=== PATIENT | female | born 1960 | race African-American/Black ===

== ENCOUNTER 2019-06-20 23:28 | Inpatient (IN) | payer OTHER ==
[2019-06-21] MEDS: SODIUM CHLORIDE 0.9% 1L BAG IV* (00:14)
[2019-06-21] MEDS: CEFEPIME 2GM/50 ML (PMX) 50 ML IVPB (00:14)
[2019-06-21] MEDS: VANCOMYCIN 1 GM (PMX) 250 ML IVPB (01:24)
[2019-06-21] MEDS: NORepinephrine 8MG/250 ML (PMX 250 ML IV (01:33)
[2019-06-21] MEDS: SOD CHLORIDE 0.9% 1,000 ML IV ×3 (02:01→22:10)
[2019-06-21] MEDS ORDERED: ALBUTEROL HFA 8 GM INHALER INH (02:30)
[2019-06-21] MEDS ORDERED: ACETAMINOPHEN 650MG/20.3ML CUP GTB (02:30)
[2019-06-21] MEDS ORDERED: VANCOMYCIN IV PER PHARMACY XX (02:30)
[2019-06-21] MEDS ORDERED: IPRATROPIUM (HFA) 12.9 GM INHALER INH (02:30)
[2019-06-21] MEDS: ALBUMIN HUMAN 25% 100 ML IV ×4 (02:38→09:05)
[2019-06-21] MEDS: FAMOTIDINE 20 MG TAB GTB ×3 (06:02→20:32)
[2019-06-21] MEDS: PIPER-TAZO 3.375 GM IV (PMX) 100 ML IVPB ×3 (06:02→18:09)
[2019-06-21] MEDS: HEPARIN 5,000 UNIT/1 ML VIAL SC ×3 (06:05→22:09)
[2019-06-21] MEDS: LACTULOSE 30ML CUP GTB (09:56)
[2019-06-21] MEDS: POTASSIUM CHLORIDE (SR) 10 MEQ TAB GTB (09:56)
[2019-06-21] MEDS: ASCORBIC ACID 500 MG TAB GTB ×2 (09:57→20:32)
[2019-06-21] MEDS: MULTIVITAMINS/MINERALS TAB GTB (11:49)
[2019-06-21] MEDS: ARTIFICIAL TEARS 15 ML OPH BOTH EYES ×2 (12:55→18:09)
[2019-06-21] MEDS ORDERED: VANCOMYCIN 1 GM 250 ML IVPB (14:00)
[2019-06-22] MEDS: ARTIFICIAL TEARS 15 ML OPH BOTH EYES ×4 (00:16→18:09)
[2019-06-22] MEDS: PIPER-TAZO 3.375 GM IV (PMX) 100 ML IVPB ×2 (00:16→05:31)
[2019-06-22] MEDS: HEPARIN 5,000 UNIT/1 ML VIAL SC ×3 (06:01→21:39)
[2019-06-22] MEDS: ASCORBIC ACID 500 MG TAB GTB ×2 (10:51→21:26)
[2019-06-22] MEDS: LACTULOSE 30ML CUP GTB (10:51)
[2019-06-22] MEDS: FAMOTIDINE 20 MG TAB GTB ×2 (10:51→21:26)
[2019-06-22] MEDS: MULTIVITAMINS/MINERALS TAB GTB (10:52)
[2019-06-22] MEDS: SOD CHLORIDE 0.9% 1,000 ML IV (11:19)
[2019-06-22] MEDS: POTASSIUM CHLORIDE (SR) 10 MEQ TAB GTB (15:46)
[2019-06-23] MEDS: ARTIFICIAL TEARS 15 ML OPH BOTH EYES ×3 (01:27→11:35)
[2019-06-23] MEDS: SOD CHLORIDE 0.9% 1,000 ML IV (01:39)
[2019-06-23] MEDS: HEPARIN 5,000 UNIT/1 ML VIAL SC ×2 (06:06→13:41)
[2019-06-23] MEDS: MULTIVITAMINS/MINERALS TAB GTB (08:41)
[2019-06-23] MEDS: FAMOTIDINE 20 MG TAB GTB (08:41)
[2019-06-23] MEDS: LACTULOSE 30ML CUP GTB (08:41)
[2019-06-23] MEDS: ASCORBIC ACID 500 MG TAB GTB (08:41)
[2019-06-23] MEDS: POTASSIUM CHLORIDE (SR) 10 MEQ TAB GTB (08:41)
== END 2019-06-23 16:38 | DRG 315 ==
LOC: TEL 06-22 08:59 → E/R 23:28 → ICU 06-21 01:49
PROC: 5A1945Z Respiratory Ventilation, 24-96 Consecutive Hours (ICD-10-PCS; principal; 2019-06-20)
PROC: 4A033R1 Measurement of Arterial Saturation, Peripheral, Percutaneous Approach (ICD-10-PCS; 2019-06-20)
PROC: 06HM33Z Insertion of Infusion Device into Right Femoral Vein, Percutaneous Approach (ICD-10-PCS; 2019-06-20)
PROC: B54BZZA Ultrasonography of Right Lower Extremity Veins, Guidance (ICD-10-PCS; 2019-06-20)
DX: I95.9 Hypotension, unspecified (principal); G93.1 Anoxic brain damage, not elsewhere classified; J96.10 Chronic respiratory failure, unspecified whether with hypoxia or hypercapnia; Z99.11 Dependence on respirator [ventilator] status; E86.0 Dehydration; R13.10 Dysphagia, unspecified; Z93.1 Gastrostomy status; E66.9 Obesity, unspecified; Z93.0 Tracheostomy status; D64.9 Anemia, unspecified; I10 Essential (primary) hypertension; R73.02 Impaired glucose tolerance (oral)
CPT/HCPCS: 36415; 36600; 71045; 74176; 76937; 80053; 80061; 81001; 81003; 82803; 83036; 83605; 83735; 83880; 84145; 84443; 84484; 85025; 85610; 85730; 86850; 86900; 86901; 87040-91; 87045; 87081; 87086; 93005; 93306; 94002; 94003; 96365; 96366; 96368; 96375; 99285-25